=== PATIENT | male | born 1975 | race Two or more races ===

== ENCOUNTER 2017-10-30 11:01 | Emergency (ER) | payer OTHER ==
[~2017-10-30] VITALS: Ht 180.3 cm; Wt 63.5 kg
[2017-10-30 15:40] LABS: Basophils # (auto) 0.1 uL; Basophils % (auto) 0.7 % (0.0-2.0); Eosinophils # (auto) 0.1 uL; Eosinophils % (auto) 1.3 % (0.0-7.0); Hemoglobin 14.4 g/dL (13.5-17.5); Lymphocytes # (auto) 1.2 uL; Lymphocytes % (auto) 15.2 % (10.0-50.0); Mean Corpuscular Hemoglobin 30.6 pg (28.0-32.0); Mean Corpuscular Hgb Conc. 33.4 g/dL (32.0-36.0); Mean Corpuscular Volume 91.6 fL (80.0-100.0); Monocytes # (auto) 0.6 uL; Neutrophils # (auto) 6.2 uL; Neutrophils % (auto) 75.8 % (37.0-80.0); Platelet Count (auto) 217 10^3/uL (140-450); Red Cell Distribution Width 12.8 % (11.8-14.3); White Blood Cell 8.2 10^3/uL (4.4-10.8)
[2017-10-30 16:05] LABS: Albumin 3.7 g/dL (3.4-5.0); BUN/Creatinine Ratio 12.5; Bilirubin, Total 1.5 mg/dL (0.2-1.0); Calcium 8.9 mg/dL (8.5-10.1); Potassium 4.3 mmol/L (3.5-5.1); Total Protein 7.6 g/dL (6.4-8.2)
[2017-10-30 16:30] VITALS: BP 126/78
== END 2017-10-30 17:45 | disposition home or self-care (01) ==
LOC: EEVIPCON 11:05 → ER 11:05
DX: E11.319 Type 2 diabetes mellitus with unspecified diabetic retinopathy without macular edema (principal); I10 Essential (primary) hypertension
CPT/HCPCS: 36415; 70480; 71045; 80053; 85025